=== PATIENT | female | born 1960 | race African-American/Black ===

== ENCOUNTER 2016-11-17 12:03 | Observation (INO) | payer BC ==
--- NOTE | ~2016-11-17 | HP ---
History And Physical [place] [id number] [facility] [place]. [address] NAME: LANDON CAMARGO : 60 STATUS : DIS Stan PAT#: [id number] AGE: 56 ADM/REG DATE : 11/17/16 MR#: [id number] REPORT SERV DATE: 11/18/16 DICTATED BY: KEYSHAWN GOODSON DATE: 11/18/16 REPORT STATUS : Draft TRANSCRIBED BY: TRUDY DATE: 11/18/16 DATE OF ADMISSION: 11/17/2016 HISTORY OF PRESENT ILLNESS: Landon Camargo is a 56-year-old female with past medical history significant for hypertension and borderline systolic function. One echocardiogram in 2014 showed an ejection fraction of 44%; however, subsequent left ventriculogram in 2016 showed normal ejection fraction. I have continued to follow her for her hypertension. She presented to the emergency room complaining of some increasing lower extremity edema, and her primary concern was left shoulder pain with numbness and discomfort radiating down the arm, specifically into the finger tips of the left hand. She reports this would wake her from sleep. She reports that when she would sit up and reposition her arm and shoulder that the discomfort improved. REVIEW OF SYSTEMS: The patient reports that she has had several steroid injections in the cervical region over the last couple of months for discomfort. She has also had rotator cuff repair and has been wearing a sling on her right side with a strap around the left side of her neck. She denies any orthopnea, paroxysmal nocturnal dyspnea, syncope, or presyncope. She denies any chest pain or tachy palpitations. MEDICATIONS: See list. PAST MEDICAL HISTORY: As noted above. Significant for hypertension. The patient status post normal cardiac catheterization and normal left ventriculogram in 2016. She has a history of arthritis, tonsillectomy, neck and back surgery, , BTL, hernia repair x4. She is status post cholecystectomy, ganglion cyst excision, knee surgery, and right shoulder surgery with steroid injections as noted above. FAMILY HISTORY: Positive for coronary artery disease. SOCIAL HISTORY: The patient does not smoke. ALLERGIES: THE PATIENT HAS NO KNOWN DRUG ALLERGIES. PHYSICAL EXAMINATION: VITAL SIGNS: Vital signs stable. The patient is afebrile. GENERAL: This is well-developed, well-nourished, obese 56-year-old female, alert and oriented x3, in no acute distress. NECK: No jugular venous distention, hepatojugular reflux, carotid bruits. CARDIOVASCULAR: Normal rate with regular rhythm. No murmur, gallop, click, or rub. LUNGS: Clear to auscultation without wheezes, rales, or rhonchi. ABDOMEN: Benign. EXTREMITIES: Reveals trace lower extremity edema. LABORATORY DATA: BNP is 17. Troponin is negative x3. History And Physical [address] [address] NAME: LANDON CAMARGO : 60 STATUS : DIS Stan PAT#: [id number] AGE: 56 ADM/REG DATE : 11/17/16 MR#: [id number] REPORT SERV DATE: 11/18/16 DICTATED BY: KEYSHAWN GOODSON DATE: 11/18/16 REPORT STATUS : Draft TRANSCRIBED BY: TRUDY DATE: 11/18/16 DIAGNOSTIC STUDIES: EKG shows normal sinus rhythm with borderline first-degree AV block and the minimal nonspecific T-wave abnormalities. ASSESSMENT: 1. Left shoulder and arm pain and numbness, this sounds very suspicious for musculoskeletal discomfort as it is positional. The patient has previously had neck and back issues. 2. Hypertension. 3. Minimal lower extremity edema. PLAN: 1. We will change amlodipine to diltiazem, hopefully improve the lower extremity swelling, was suspected, it has been exacerbated by her steroid injections. I have also advised the patient to stay away from NSAIDs as much as possible for her chronic pain. 2. The patient has an appointment with Dr. Roca on Friday to further evaluate these symptoms. We will proceed with discharge today. /TRDUY Keyshawn Goodson M.D., [facility] / [id number] CC: Keyshawn Goodson M.D., [facility] LISS Castillo II, M.D. Jimmy Davis, M.D.
[~2016-11-17 12:03] MED LIST: ADVIL PO; ATEN100 PO; BUM1 PO; COMBIVENT INH; COREG12 PO; INDO50SUPP PO; KLOR-CON 1010 MEQ PO; L40 PO; LISINOPRIL40 MG PO; LORTAB10 PO; METHOC500B PO; NORCO1 TA2 PO; NORV10 PO; PERCOCET1 TA4 PO; ROXICODONE15 MG PO; SYN075 PO; TETRACYCLINE250 MG PO; ULORIC40 MG PO; X5 PO
[2016-11-17 18:10] LABS: BASOPHILS 0.2 %; BASOPHILS ABSOLUTE 0.01 10/3/uL (0.0-0.16); EOSINOPHILS 2.6 %; EOSINOPHILS ABSOLUTE 0.16 10/3/uL (0.0-0.53); ER CBC TAT 0 Hrs 07 Mins; HEMATOCRIT 39.8 % (36.0-48.0); HEMOGLOBIN 12.7 g/dL (12.0-16.0); IMMATURE GRANULOCYTES 0.2 %; IMMATURE GRANULOCYTES ABSOLUTE 0.01 10/3/uL (0.0-0.11); LYMPHOCYTES 33.6 %; LYMPHOCYTES ABSOLUTE 2.05 10/3/uL (0.67-4.30); MEAN CORPUS HGB CONC 31.9 g/dL (32.0-36.0); MEAN CORPUSCULAR HEMOGLOB 26.6 pg (26.0-34.0); MEAN CORPUSCULAR VOLUME 83.4 fL (80-100); MEAN PLATELET VOLUME 10.1 fL (9.2-13.0); MONOCYTES 5.2 %; MONOCYTES ABSOLUTE 0.32 10/3/uL (0.21-1.20); NEUTROPHILS 58.2 %; NEUTROPHILS ABSOLUTE 3.56 10/3/uL (2.02-8.40); PLATELET COUNT 243 10/3/uL (150-400); RBC DISTRIBUTION WIDTH 13.8 % (12.0-16.0); RED CELL COUNT 4.77 10/6/uL (4.0-5.6); WHITE BLOOD CELLS 6.1 10/3/uL (4.5-10.5)
[2016-11-17 18:11] LABS: MANUAL DIFF NO %
[2016-11-17 18:21] LABS: PARTIAL THROMBO TIME 25.2 SEC (22.5-37.2); PROTIME (NOT ORD) 13.1 SEC (12.0-14.5)
[2016-11-17 18:28] LABS: BUN (BLOOD UREA NITROGEN) 12 MG/DL (6-23); CALCIUM, SERUM 8.9 MG/DL (8.5-10.4); CHEST PAIN PROFILE TAT 0 Hrs 25 Mins; CHLORIDE, SERUM 107 MMOL/L (96-112); CO2 (CARBON DIOXIDE) 26 MMOL/L (24-34); CREATININE 0.83 MG/DL (0.55-1.02); GFR AFRICAN AMERICAN 91 ML/MIN (>=60); GFR NON AFRICAN AMERICAN 79 ML/MIN (>=60); GLUCOSE, SERUM 83 MG/DL (60-99); POTASSIUM, SERUM 3.9 MMOL/L (3.5-5.3); SODIUM, SERUM 141 MMOL/L (135-148); TROPONIN I <0.02 NG/ML (<0.05)
[2016-11-17] MEDS ORDERED: Z100 PO (20:47)
[2016-11-17] MEDS ORDERED: BUM2 PO (20:47)
[2016-11-17] MEDS ORDERED: MINOCIN100 PO (20:47)
[2016-11-17] MEDS ORDERED: SPIR100 PO (20:47)
[2016-11-17] MEDS ORDERED: ULTRAM50 PO (20:47)
[2016-11-17] MEDS ORDERED: COZAAR100 MG PO (20:48)
[2016-11-17] MEDS ORDERED: COREG12 PO (20:48)
[2016-11-17] MEDS ORDERED: NORV10 PO (20:48)
[2016-11-17] MEDS ORDERED: ULORIC40 MG PO (20:48)
[2016-11-17] MEDS ORDERED: MOBIC15 MG PO (20:48)
[2016-11-17] MEDS ORDERED: NEUR300 PO (20:49)
[2016-11-17] MEDS ORDERED: METHOC500B PO (20:49)
[2016-11-17] MEDS ORDERED: PCET PO (20:49)
[2016-11-18 03:59] LABS: TROPONIN I <0.02 NG/ML (<0.05)
[2016-11-18] MEDS ORDERED: CARDCD180 PO (14:52)
[2016-11-18 15:03] LABS: ULTRASENSITIVE TSH 0.972 MCIU/ML (0.358-3.740)
== END 2016-11-18 15:26 | disposition home or self-care (01) ==
LOC: ER 12:03 → CDU1 20:21
PROVIDERS: Clinical Nurse Specialist; Emergency Medicine
DX: M25.512 Pain in left shoulder (principal); I10 Essential (primary) hypertension; R60.0 Localized edema; M19.90 Unspecified osteoarthritis, unspecified site; Z90.89 Acquired absence of other organs; Z90.49 Acquired absence of other specified parts of digestive tract
CPT/HCPCS: 71010; 72125; 80048; 83735; 83880; 84443; 84484; 85025; 85610; 85730; 93005; 96374; 96375; 99285; A9270-GY; G0378; J2930

== ENCOUNTER 2016-12-18 05:08 | Inpatient (IN) | payer BC ==
[2016-12-09 10:24] LABS: HEMATOCRIT 39.8 % (36.0-48.0); HEMOGLOBIN 12.9 g/dL (12.0-16.0)
[2016-12-09 10:40] LABS: BUN (BLOOD UREA NITROGEN) 11 MG/DL (6-23); CALCIUM, SERUM 8.8 MG/DL (8.5-10.4); CHLORIDE, SERUM 106 MMOL/L (96-112); CO2 (CARBON DIOXIDE) 28 MMOL/L (24-34); CREATININE 0.87 MG/DL (0.55-1.02); GFR AFRICAN AMERICAN 86 ML/MIN (>=60); GFR NON AFRICAN AMERICAN 74 ML/MIN (>=60); GLUCOSE, SERUM 89 MG/DL (60-99); POTASSIUM, SERUM 3.6 MMOL/L (3.5-5.3); SODIUM, SERUM 141 MMOL/L (135-148)
--- NOTE | ~2016-12-18 | OP ---
Record Of Operation [facility] [address] [place]. [address] NAME: ELODIA PITTMAN : 60 STATUS : DIS Stan PAT#: [id number] AGE: 56 ADM/REG DATE : 12/18/16 MR#: [id number] REPORT SERV DATE: 12/21/16 DICTATED BY: LUIS ROCA II DATE: 12/21/16 REPORT STATUS : Draft TRANSCRIBED BY: TRUDY DATE: 12/21/16 DATE OF PROCEDURE: 12/18/2016 PREOPERATIVE DIAGNOSES: 1. Left upper extremity severe radiculopathy. 2. 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 POSTOPERATIVE DIAGNOSES: 1. Left upper extremity severe radiculopathy. 2. 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 PROCEDURES: 1. Hardware removal, C5-6. 2. Interbody arthrodesis, C4-5 and C6-7. 3. Application of prosthetic devices, C4-5 and C6-7. 4. Anterior instrumentation, C4-5, C6-7. 5. Use of allograft substitute and bone marrow aspirate. 6. Use of the microscope. FLUIDS: 1200 mL LR. ESTIMATED BLOOD LOSS: 30 mL. DRAINS: One drain. COMPLICATIONS: No complications. ANTIBIOTIC: Preoperatively. PREOPERATIVE HISTORY: This is a very friendly 56-year-old female with radiating pains from the left shoulder down the arm consistent with radiculopathy. She was found to have significant adjacent segment degeneration. We discussed the pros and cons of surgery, and she wished to proceed. DESCRIPTION OF PROCEDURE: After informed consent was obtained, the patient was brought to the operating room at her request and general anesthesia achieved. She was placed in a supine position and the neck and iliac crest prepped and draped in a sterile fashion. 5 mL of bone marrow were aspirated from the iliac crest followed by a right-sided approach. The interval was explored and the deep cervical fascia incised. At this point, the C5-6 hardware was now removed. This was a plate and screw construct and it was fully removed. Next, the belt maker retractors were placed underneath the longus colli muscles and the ET tube cuff was deflated and reinflated followed by placement of the Billings pins. The microscope was now in place, and we now performed the interbody disk work at C4-5. The disk Record Of Operation [facility] [address] [facility] [place]. [address] NAME: ELODIA PITTMAN : 60 STATUS : DIS Stan PAT#: [id number] AGE: 56 ADM/REG DATE : 12/18/16 MR#: [id number] REPORT SERV DATE: 12/21/16 DICTATED BY: LUIS ROCA II DATE: 12/21/16 REPORT STATUS : Draft TRANSCRIBED BY: TRUDY DATE: 12/21/16 was now removed with the pituitary rongeurs, Kerrison rongeurs, and the curettes. The endplates were again denuded of their cartilage with the high-speed bur. The posterior vertebral body osteophytes were now removed with the Kerrison rongeurs and the curettes. The foraminotomies were completed with the Kerrison rongeurs. The prosthetic device was then trialed and chosen and placed at C4-5. This contained allograft substitute and bone marrow aspirate. Next, a similar procedure was performed at C6-7. The disk was now removed and the endplates prepared with the high-speed bur and the Kerrison rongeurs and the curettes. The significant stenosis was now alleviated from the canal and the foramen. After removing the posterior longitudinal ligament, the prosthetic device was now well placed. Again, this contained allograft substitute and bone marrow aspirate. At this point, the anterior instrumentation was applied. We placed a plate over the C4-5 level. Again, this was a separate plate and screw construct, and two screws were applied into C4 and C5. We also then placed a plate over C6-7 with two screws into C6 and C7. Multiplanar imaging confirmed acceptable placement of the implants. A small drain was placed secondary to mild cancellous bone bleeding. The standard closure was performed and the patient was now extubated and transferred to PACU in stable condition. HARPREET/TRUDY Luis Roca II, M.D. / [id number] CC: Luis Roca II, M.D. Hetal Pang NP
[~2016-12-18 05:08] MED LIST changes: +BUM2 PO; +CARDCD180 PO; +COZAAR100 MG PO; +MINOCIN100 PO; +MOBIC15 MG PO; +NEUR300 PO; +PCET PO; +SPIR100 PO; +ULTRAM50 PO; +Z100 PO
[2016-12-20] MEDS ORDERED: PERCOCET 10/3251 TAB PO (08:12)
== END 2016-12-20 08:47 | disposition home or self-care (01) | DRG 472 ==
LOC: SDC 05:08 → 3SO 12:12
PROVIDERS: Orthopaedic Surgery
PROC: 0RP104Z Removal of Internal Fixation Device from Cervical Vertebral Joint, Open Approach (ICD-10-PCS; 2016-12-18)
PROC: 07DR3ZZ Extraction of Iliac Bone Marrow, Percutaneous Approach (ICD-10-PCS; 2016-12-18)
PROC: 4A11X4G Monitoring of Peripheral Nervous Electrical Activity, Intraoperative, External Approach (ICD-10-PCS; 2016-12-18)
PROC: 0RG20A0 Fusion of 2 or more Cervical Vertebral Joints with Interbody Fusion Device, Anterior Approach, Anterior Column, Open Approach (ICD-10-PCS; principal; 2016-12-18 07:00)
PROC: 0RT30ZZ Resection of Cervical Vertebral Disc, Open Approach (ICD-10-PCS; 2016-12-18 07:00)
DX: M47.22 Other spondylosis with radiculopathy, cervical region (principal); Z68.42 Body mass index [BMI] 45.0-49.9, adult; I11.0 Hypertensive heart disease with heart failure; I50.9 Heart failure, unspecified; E66.01 Morbid (severe) obesity due to excess calories; K58.9 Irritable bowel syndrome, unspecified; G47.33 Obstructive sleep apnea (adult) (pediatric); J45.909 Unspecified asthma, uncomplicated; Z79.891 Long term (current) use of opiate analgesic; Z79.899 Other long term (current) drug therapy; Z98.1 Arthrodesis status
CPT/HCPCS: 80048; 82962; 84484; 85014; 85018; 87641; 88300; 88304; 88311; 93005; A9270-GY; C1713; J0690; J2250; J2270; J2405; J2710; J3010